=== PATIENT | male | born 1950 | race Caucasian/White ===

== ENCOUNTER 2021-08-01 11:25 | Inpatient (IN) ==
--- NOTE | 2021-08-01 11:46 | Emergency Department Note ---
HPI General Chief complaint: Shortness of Breath/Dyspnea Stated complaint: Short of breath Time Seen by Provider: 08/01/21 11:31 Source: patient Mode of arrival: ambulatory Limitations: no limitations History of Present Illness HPI Narrative: 71-year-old male with past medical history of BPH, GERD, and hyperlipidemia presenting with shortness of breath. Patient reports he has been intermittently short of breath for the last 3 months. He has been working with his primary care physician who has prescribed multiple different inhaled medications which do not seem to help. Last month he had a chest x-ray and CT of the chest which showed no pulmonary embolism but there was noted to be enlargement of the main p ulmonary artery. Patient states he then traveled to [place] and was feeling better. He returned back to [place] and the shortness of breath returned. Dyspnea seems to be worse with exertion. He does have a nonproductive cough. Denies chest pain, leg swelling, vomiting, or fever. Patient had a home COVID test 3 days ago which was negative. He was given referrals to pulmonology but has not seen pulmonology yet. He is a former smoker but has never had a formal diagnosis of COPD. He does not wear oxygen at home. No other complaints at this time Related Data Home Medications Medication Instructions Recorded Confirmed celecoxib 200 mg capsule 200 mg PO QDAY 12/24/20 07/30/21 clobetasol 0.05 % topical cream 1 applic TOPICAL QDAY 12/24/20 07/30/21 balsalazide 750 mg capsule 2,250 mg PO TID 01/28/21 07/30/21 Previous Rx's Medication Instructions Recorded oxybutynin chloride 5 mg 5 mg PO QDAY #90 tab 02/11/21 tablet,extended release 24 hr pravastatin 40 mg tablet 40 mg PO QHS #90 tab 02/18/21 tamsulosin 0.4 mg capsule 0.4 mg PO QDAY #90 cap 05/13/21 ezetimibe 10 mg tablet (Zetia) 10 mg PO QDAY #90 tab 05/14/21 mupirocin 2 % topical ointment 1 applic TOPICAL BID #22 g 05/14/21 omeprazole 20 mg tablet,delayed 40 mg PO QDAY #180 tab 05/30/21 release rizatriptan 5 mg disintegrating See Rx Instructions PO .COMPLEX 06/10/21 tablet #10 tab albuterol sulfate 90 mcg/actuation 2 puff INHALATION Q4-6H PRN #8.5 g 06/13/21 aerosol inhaler fluticasone propionate 230 2 inh INHALATION BID #12 g 06/13/21 mcg-salmeterol 21 mcg/actuation HFA inhaler duloxetine 60 mg capsule,delayed 120 mg PO QDAY #180 cap 06/24/21 release Allergies Allergy/AdvReac Type Severity Reaction Status Date / Time codeine Allergy Unknown Unknown Verified 08/01/21 11:30 ibuprofen Allergy Unknown Unknown Verified 08/01/21 11:30 Penicillins Allergy Unknown Unknown Verified 08/01/21 11:30 Review of Systems ROS ROS Narrative: Narrative: Constitutional: Denies fever or chills Eyes: Denies vision change ENT ED: Denies throat pain Cardiovascular: Denies chest pain or palpitations Respiratory: Reports shortness of breath; Denies cough Gastrointestinal: Denies abdominal pain, nausea, vomiting or diarrhea Genitourinary: Denies dysuria or hematuria Musculoskeletal: Denies back pain or joint swelling Integumentary: Denies rash Neurological: Denies headache or weakness Psychiatric: Denies anxiety Endocrine: Denies fatigue Hematological/Lymphatic: Denies easy bruising PFSH Narrative Patient History Narrative: Narrative: Medical/Surgical/Family History All Active Problems (Updated 08/01/21 @ 15:35 by Олег Mcgregor MD) Bilateral pneumonia (Acute) Hypoxia (Acute) Fatigue (Acute) Shortness of breath (Acute) Migraines (Acute) Nasal folliculitis (Acute) Headache above the eye region (Acute) Sinusitis (Acute) Elevated PSA (Chronic) Sarcoidosis (Chronic) Depressive disorder (Chronic) Aneurysm of thoracic aorta (Chronic) Benign prostatic hyperplasia (Chronic) Osteoarthritis (Chronic) Thoracic lymphadenopathy (Chronic) Solitary lung nodule (Chronic) Asthma (Chronic) Prostatitis (Acute) Ascending aortic aneurysm (Acute) Ulcerative colitis (Acute) Epistaxis (Acute) Wellness examination (Acute) Elevated blood pressure reading (Acute) Urinary urgency (Acute) Medical History (Updated 08/01/21 @ 15:35 by Олег Mcgregor MD) Aneurysm of thoracic aorta Ascending aortic aneurysm Asthma Benign prostatic hyperplasia Depressive disorder Elevated blood pressure reading Elevated PSA Epistaxis Fatigue Migraines Nasal folliculitis Osteoarthritis Sarcoidosis Shortness of breath Solitary lung nodule Thoracic lymphadenopathy Ulcerative colitis Wellness examination Surgical History History of hip surgery Bilateral replacement; 2013 & 2014 History of knee surgery (~2013) partial RT knee History of sinus surgery Family History Sister Arthritis Mother Chronic obstructive lung disease Father Gallstone Migraine Prostate cancer Social History Smoking Status: Former smoker Alcohol Intake Frequency: 0-2 drinks per day Substance Use: does not use Exam Narrative Narrative: Narrative: General Limitations: no limitations General appearance: Present alert and in no apparent distress Head Head: Present atraumatic and normocephalic Eye Eye: Present normal appearance and EOMI; Absent scleral icterus or conjunctival injection ENT ENT: Present mucous membranes moist Neck Neck: Present normal inspection, full ROM and trachea midline Chest Chest: Present symmetric chest wall rise Respiratory Respiratory: Present normal lung sounds bilaterally; Absent respiratory distress, wheezes, stridor, accessory muscle use or prolonged expiratory phase Cardiovascular Cardiovascular: Present regular rate and normal rhythm; Absent systolic murmur or diastolic murmur Adbominal Abdominal: Present soft; Absent distention, tenderness, guarding, rebound, rigidity, organomegaly or mass Extremities Extremities: Present normal inspection; Absent pretibial edema Neurological Neurological: Present alert and oriented X3; Absent motor sensory deficit Psychiatric Psychiatric: Present normal affect and normal mood Skin Skin: Present warm (WNL) and dry Course Consultations Consultation #1: Dr. Qureshi, hospitalist Time: 15:30 Vital Signs Vital signs: Vital Signs Temperature 98.5 F 08/01/21 11:25 Pulse Rate 79 08/01/21 11:25 Respiratory Rate 19 08/01/21 11:25 Blood Pressure 130/84 08/01/21 11:25 Pulse Oximetry (%) 91 08/01/21 11:25 Temperature 98.5 F 08/01/21 11:25 Pulse Rate 79 08/01/21 15:17 Respiratory Rate 19 08/01/21 11:25 Blood Pressure 121/78 08/01/21 13:56 Pulse Oximetry (%) 92 08/01/21 15:17 [facility] MDM Narrative Medical decision making narrative: 71-year-old male presenting with dyspnea with exertion. He was noted to be satting 86% at rest while on room air. He did not have any wheezing on pulmonary examination. He was placed on 3 L nasal cannula with improvement in his saturations. Rapid COVID and influenza tests are negative. Chest x-ray shows no large focal infiltrates. He was given p.o. prednisone 60 mg. Given his unexplained hypoxia, D-dimer was ordered and found to be elevated at 4.46. CTA chest obtained which shows no pulmonary embolism but there are moderate patchy groundglass infiltrates in both upper lobes and in the periphery of both posterior lower lobes. These are new compared to his prior chest CT. This is presumably atypical pneumonia, doses of IV Rocephin and azithromycin ordered. DuoNeb was also ordered. Will admit for pneumonia and hypoxia, patient endorsed to Dr. Qureshi who will accept. Lab Data Lab results reviewed: Yes I reviewed the patient's lab results. Result diagrams: 08/01/21 12:16 08/01/21 12:16 Labs: Lab Results 08/01/21 08/01/21 08/01/21 Range/Units 12:16 12:16 12:16 WBC 7.7 (4.5-11.0) K/mcL RBC 4.20 L (4.63-6.08) M/mcL Hgb 12.3 L (13.7-17.5) g/dL Hct 37.1 L (40.1-51.0) % MCV 88.3 (80.0-100.0) fL MCH 29.3 (26.0-34.0) pg MCHC 33.2 (31.0-36.0) g/dL RDW 12.9 (11.5-14.5) % Plt Count 251 (140-440) K/mcL MPV 9.6 (7.4-10.4) fL Neut % (Auto) 69.5 (38.0-78.0) % Lymph % (Auto) 16.7 (15.5-49.0) % [place] % (Auto) 6.1 (1.0-12.0) % Eos % (Auto) 6.9 (0.0-7.0) % Baso % (Auto) 0.8 (0.0-2.0) % Lymph # (Auto) 1.29 L (1.50-4.80) K/mcL [place] # (Auto) 0.47 (0.10-0.90) K/mcL Eos # (Auto) 0.53 (0.00-0.70) K/mcL Baso # (Auto) 0.06 (0.00-0.30) K/mcL Absolute Neutrophils 5.37 (1.80-8.00) K/mcL D-Dimer 4.46 H (0.27-0.50) ug/mL Sodium 133 (133-145) mmol/L Potassium 4.3 (3.3-5.1) mmol/L Chloride 100 (96-108) mmol/L Carbon Dioxide 26 (22-30) mmol/L Anion Gap 7.0 L (8.0-16.0) BUN 16 (8-23) mg/dL Creatinine 1.0 (0.7-1.2) mg/dL GFR Calculation 74 Glucose 109 H (70-105) mg/dL Calcium 9.1 (8.6-10.4) mg/dL Total Bilirubin 0.3 (0.1-1.0) mg/dL AST 16 (<40) U/L ALT 11 (<40) U/L Alkaline Phosphatase 53 (39-117) U/L NT-Pro-B Natriuret Pep 100.7 (<125.0) pg/mL Total Protein 7.6 (5.9-8.4) gm/dL Albumin 3.2 (3.2-5.2) gm/dL Globulin 4.4 H (2.2-3.7) gm/dL Albumin/Globulin Ratio 0.7 L (1.0-2.3) POC Troponin I (0.02-0.08) 08/01/ Range/Units 12:22 WBC (4.5-11.0) K/mcL RBC (4.63-6.08) M/mcL Hgb (13.7-17.5) g/dL Hct (40.1-51.0) % MCV (80.0-100.0) fL MCH (26.0-34.0) pg MCHC (31.0-36.0) g/dL RDW (11.5-14.5) % Plt Count (140-440) K/mcL MPV (7.4-10.4) fL Neut % (Auto) (38.0-78.0) % Lymph % (Auto) (15.5-49.0) % [place] % (Auto) (1.0-12.0) % Eos % (Auto) (0.0-7.0) % Baso % (Auto) (0.0-2.0) % Lymph # (Auto) (1.50-4.80) K/mcL [place] # (Auto) (0.10-0.90) K/mcL Eos # (Auto) (0.00-0.70) K/mcL Baso # (Auto) (0.00-0.30) K/mcL Absolute Neutrophils (1.80-8.00) K/mcL D-Dimer (0.27-0.50) ug/mL Sodium (133-145) mmol/L Potassium (3.3-5.1) mmol/L Chloride (96-108) mmol/L Carbon Dioxide (22-30) mmol/L Anion Gap (8.0-16.0) BUN (8-23) mg/dL Creatinine (0.7-1.2) mg/dL GFR Calculation Glucose (70-105) mg/dL Calcium (8.6-10.4) mg/dL Total Bilirubin (0.1-1.0) mg/dL AST (<40) U/L ALT (<40) U/L Alkaline Phosphatase (39-117) U/L NT-Pro-B Natriuret Pep (<125.0) pg/mL Total Protein (5.9-8.4) gm/dL Albumin (3.2-5.2) gm/dL Globulin (2.2-3.7) gm/dL Albumin/Globulin Ratio (1.0-2.3) POC Troponin I 0 L (0.02-0.08) ED POC Tests ED POC Tests: [facility] - Influenza A Negative [facility] - Influenza B Negative [facility] - SARS Antigen Negative Radiology Data Radiology results reviewed: Yes I reviewed the patient's radiology results. Radiology results narrative: Ordering Physician:Олег Mcgregor M.D. Date of Service:08/01/21 Procedure(s):XR chest 2V CLINICAL INFORMATION: Dyspnea COMPARISON: 06/13/2021 TECHNIQUE: PA and Lateral views FINDINGS: The heart size, mediastinum and pulmonary vessels are unremarkable. The lungs are clear. There are no effusions. The bones and soft tissues are within normal limits. IMPRESSION: Normal chest. Interpreted and Authenticated by: Darryn Serra 08/01/21 Ordering Physician:Олег Mcgregor M.D. Date of Service:08/01/21 Procedure(s):CT angio chest CLINICAL INFORMATION: Dyspnea, hypoxia and elevated d-dimer COMPARISON: CT pulmonary exam 06/19/2021 TECHNIQUE: APml of Isovue-370 were injected intravenously. Using SmartPrep to maximize pulmonary artery opacification, .625mm helical slices were obtained from the lung apices through the lung bases. Following reconstruction, 2.5 mm sagittal, coronal, and axial reformations were processed. The exam was reviewed at mediastinal, lung, and bone windows. The exam was performed using radiation dose optimization techniques including, but not limited to, automated exposure control, adjustment of the mA and/or kV according to patient size and use of iterative reconstruction technique. FINDINGS: Pulmonary parenchymal windows show moderate patchy groundglass infiltrates in both upper lobes and superior segment left lower lobe. Mild patchy infiltrate seen in the right middle lobe and in the periphery of both posterior lower lobes. All infiltrates are new from the CT six weeks ago. Pleural spaces are unremarkable-no effusions. Mediastinal windows show the heart is grossly normal in size and configuration. The central pulmonary arteries are moderately: The main pulmonary diameter of 4.5 cm. Findings compatible with pulmonary hypertension. This is unchanged. The thoracic aorta is normal in diameter. Heart is normal in size with very heavy fibrofatty calcific plaque in the LAD coronary artery. Scattered plaque present in the right coronary artery and the circumflex. There is no adenopathy in the mediastinal, hilar or axillary regions. The esophagus is grossly normal. Thyroid is unremarkable. Bone windows show moderate degenerative disc disease in mid thoracic spine with chronic wedging and endplate irregularity compatible associated chronic Scheuermann's disease. Soft tissues are normal. Images through the superior abdomen a few stable hepatic cysts. IMPRESSION: 1. No evidence of pulmonary embolus. 2. Moderate patchy groundglass infiltrates in both upper lobes and superior segment left lower lobe with smaller groundglass infiltrates in the periphery of both posterior lower lobes. The infiltrates are new from the exam does six weeks prior. Diagnostic considerations include atypical pneumonia including covid mycoplasma or PCP. ARDS acute eosinophilic pneumonia and acute hypersensitivity pneumonia are all uncommon causes. 3. Moderate enlargement of the central pulmonary arteries compatible with pulmonary hypertension stable. Etiology for this is unknown. 4. Stable hepatic cysts Interpreted and Authenticated by: Darryn Serra 08/01/21 EKG Data EKG #1: EKG attestation: Yes I reviewed and interpreted this EKG. and Yes There are no EKG findings of acute coronary syndrome EKG results narrative: Normal sinus rhythm at [address] elevation or depression. Interpretation: no acute changes Discharge Plan Patient/Caregiver Discharge Instructions Pt seen by [facility] [employer]/PA only: No Clinical Impression: Bilateral pneumonia, Hypoxia Patient Disposition: Xfer As Inpt ([facility]) Condition: Fair Follow up with: Satinder Nam MD [Primary Care Provider] - Prescriptions: No Action oxybutynin chloride 5 mg tablet extended release 24hr 5 mg PO QDAY Qty: 90 0RF pravastatin 40 mg tablet 40 mg PO QHS Qty: 90 0RF tamsulosin 0.4 mg capsule 0.4 mg PO QDAY Qty: 90 0RF omeprazole 20 mg tablet,delayed release (DR/EC) 40 mg PO QDAY Qty: 180 0RF rizatriptan 5 mg tablet,disintegrating See Rx Instructions PO .COMPLEX Qty: 10 0RF Rx Instructions: take 1 tablet at onset of headache; if no relief, may repeat 1 tablet after at least 2 hrs PO fluticasone propion-salmeterol 230-21 mcg/actuation HFA aerosol inhaler 2 inh inhalation BID Qty: 12 2RF Hold Instructions: Doctor's Order duloxetine 60 mg capsule,delayed release(DR/EC) 120 mg PO QDAY Qty: 180 0RF celecoxib 200 mg capsule 200 mg PO QDAY 0RF clobetasol 0.05 % cream 1 applic topical QDAY 0RF balsalazide 750 mg capsule 2,250 mg PO TID 0RF ezetimibe [Zetia] 10 mg tablet 10 mg PO QDAY Qty: 90 2RF mupirocin 2 % ointment 1 applic topical BID Qty: 22 2RF albuterol sulfate 90 mcg/actuation HFA aerosol inhaler 2 puff inhalation Q4-6H PRN (Reason: shortness of breath or wheezing) Qty: 8.5 3RF Breztri Aerosphere 160-9-4.8 mcg/actuation HFA aerosol inhaler 0RF Hold Instructions: Doctor's Order Myrbetriq 50 mg tablet extended release 24 hr 0RF
[2021-08-01] MEDS ORDERED: predniSONE 20 MG TABLET PO ONE (12:08)
[2021-08-01 13:03] LABS: Basophils # (Auto) 0.06 K/mcL (0.00-0.30); Basophils % (Auto) 0.8 % (0.0-2.0); Eosinophils # (Auto) 0.53 K/mcL (0.00-0.70); Eosinophils % (Auto) 6.9 % (0.0-7.0); Hematocrit 37.1 % (40.1-51.0); Hemoglobin 12.3 g/dL (13.7-17.5); Lymphocytes # (Auto) 1.29 K/mcL (1.50-4.80); Lymphocytes % (Auto) 16.7 % (15.5-49.0); Mean Cell Volume 88.3 fL (80.0-100.0); Mean Corpuscular HGB Conc 33.2 g/dL (31.0-36.0); Mean Platelet Volume 9.6 fL (7.4-10.4); Monocytes # (Auto) 0.47 K/mcL (0.10-0.90); Monocytes % (Auto) 6.1 % (1.0-12.0); Neutrophils % (Auto) 69.5 % (38.0-78.0); Platelet Count 251 K/mcL (140-440); Red Cell Distribution Width 12.9 % (11.5-14.5); WBC 7.7 K/mcL (4.5-11.0)
[2021-08-01 13:22] LABS: proBNP 100.7 pg/mL (<125.0)
--- NOTE | 2021-08-01 13:24 | XRay Report ---
CLINICAL INFORMATION: Dyspnea COMPARISON: 06/13/2021 TECHNIQUE: PA and Lateral views FINDINGS: The heart size, mediastinum and pulmonary vessels are unremarkable. The lungs are clear. There are no effusions. The bones and soft tissues are within normal limits. IMPRESSION: Normal chest. Interpreted and Authenticated by: Darryn Serra 08/01/21
[2021-08-01 13:27] LABS: ALT/SGPT 11 U/L (<40); AST/SGOT 16 U/L (<40); Albumin 3.2 gm/dL (3.2-5.2); Albumin/Globulin Ratio 0.7 (1.0-2.3); Alkaline Phosphatase 53 U/L (39-117); Bilirubin,Total 0.3 mg/dL (0.1-1.0); Blood Urea Nitrogen 16 mg/dL (8-23); Calcium 9.1 mg/dL (8.6-10.4); Carbon Dioxide 26 mmol/L (22-30); Chloride 100 mmol/L (96-108); Globulin 4.4 gm/dL (2.2-3.7); Glomerular Filtration Rate 74; Glucose 109 mg/dL (70-105)
--- NOTE | 2021-08-01 14:47 | Cat Scan Report ---
CLINICAL INFORMATION: Dyspnea, hypoxia and elevated d-dimer COMPARISON: CT pulmonary exam 06/19/2021 TECHNIQUE: APml of Isovue-370 were injected intravenously. Using SmartPrep to maximize pulmonary artery opacification, .625mm helical slices were obtained from the lung apices through the lung bases. Following reconstruction, 2.5 mm sagittal, coronal, and axial reformations were processed. The exam was reviewed at mediastinal, lung, and bone windows. The exam was performed using radiation dose optimization techniques including, but not limited to, automated exposure control, adjustment of the mA and/or kV according to patient size and use of iterative reconstruction technique. FINDINGS: Pulmonary parenchymal windows show moderate patchy groundglass infiltrates in both upper lobes and superior segment left lower lobe. Mild patchy infiltrate seen in the right middle lobe and in the periphery of both posterior lower lobes. All infiltrates are new from the CT six weeks ago. Pleural spaces are unremarkable-no effusions. Mediastinal windows show the heart is grossly normal in size and configuration. The central pulmonary arteries are moderately: The main pulmonary diameter of 4.5 cm. Findings compatible with pulmonary hypertension. This is unchanged. The thoracic aorta is normal in diameter. Heart is normal in size with very heavy fibrofatty calcific plaque in the LAD coronary artery. Scattered plaque present in the right coronary artery and the circumflex. There is no adenopathy in the mediastinal, hilar or axillary regions. The esophagus is grossly normal. Thyroid is unremarkable. Bone windows show moderate degenerative disc disease in mid thoracic spine with chronic wedging and endplate irregularity compatible associated chronic Scheuermann's disease. Soft tissues are normal. Images through the superior abdomen a few stable hepatic cysts. IMPRESSION: 1. No evidence of pulmonary embolus. 2. Moderate patchy groundglass infiltrates in both upper lobes and superior segment left lower lobe with smaller groundglass infiltrates in the periphery of both posterior lower lobes. The infiltrates are new from the exam does six weeks prior. Diagnostic considerations include atypical pneumonia including covid mycoplasma or PCP. ARDS acute eosinophilic pneumonia and acute hypersensitivity pneumonia are all uncommon causes. 3. Moderate enlargement of the central pulmonary arteries compatible with pulmonary hypertension stable. Etiology for this is unknown. 4. Stable hepatic cysts Interpreted and Authenticated by: Darryn Serra 08/01/21
[2021-08-01] MEDS ORDERED: IPRATROPIUM/ALBUTEROL 3 ML AMPUL.NEB NEB ONE (15:06)
[2021-08-01] MEDS ORDERED: cefTRIAXone 1 GM VIAL IV ONE ×2 (15:18→16:30)
[2021-08-01] MEDS ORDERED: AZITHROMYCIN 500 MG in DEXTROSE 5% IN WATER 250 ML IV ONE (15:18)
--- NOTE | 2021-08-01 15:19 | Internal Med History&Physical ---
HPI History of Present Illness Patient information: Note initiated : 08/01/21 at 3:19 pm Service Date, if different from initiated Date: [] Patient: Norman Lofton a 71 y/o M admitted on for Short of breath. Chief Complaint: [] History of present illness: Mr. Lofton is a 71 year old M Presents to the ED with shortness of breath and dry cough. He says he came in today finally because his said last night he was breathing really shallow and she did not like the way he was breathing. Patient states in April started having shortness of breath and coughing issues. He was also having a lot of nasal congestion and drainage and attribut ed it to allergies. But because of shortness of breath he went and saw his primary care Dr. Nam. Is placed on a course of antibiotics and also trialed on several different inhalers. Echocardiogram was done as well which was unremarkable. He eventually started improving and was recently in [place] visiting his in- laws and he felt better in [place], but while there his father did have a respiratory illness with a fever. When he got back from [place] he did develop the fever for day and then started developing worsening of his symptoms again, cough and shortness of breath. Patient denies a COVID or COVID exposure. He has had the COVID-vaccine and the booster. Denies pyrosis or other acid reflux symptoms. No exposure to farm/farm animals. In the ED he was evaluated found to be 86% on room air. Rapid flu and COVID test are negative, anther COVID test pending. She denies chest pain. But had the fevers for the 1 day and has some occasional chills. Recommend ED review he will the elevated dimer and thus a CT a of the chest was done. It was negative for PE but showed moderate patchy groundglass infiltrates bilateral upper lobes and left lower lobes and some small in the periphery of the posterior bilateral lobes. Review of Systems: Pertinent positives as above. Denies headache/nausea/vomiting/chest or abdominal pain/diarrhea. Remaining 10 point review of system reviewed negative PFSH PFSH All Active Problems (Updated 08/01/21 @ 15:35 by Олег Mcgregor MD) Bilateral pneumonia (Acute) Hypoxia (Acute) Fatigue (Acute) Shortness of breath (Acute) Migraines (Acute) Nasal folliculitis (Acute) Headache above the eye region (Acute) Sinusitis (Acute) Elevated PSA (Chronic) Sarcoidosis (Chronic) Depressive disorder (Chronic) Aneurysm of thoracic aorta (Chronic) Benign prostatic hyperplasia (Chronic) Osteoarthritis (Chronic) Thoracic lymphadenopathy (Chronic) Solitary lung nodule (Chronic) Asthma (Chronic) Prostatitis (Acute) Ascending aortic aneurysm (Acute) Ulcerative colitis (Acute) Epistaxis (Acute) Wellness examination (Acute) Elevated blood pressure reading (Acute) Urinary urgency (Acute) Medical History (Updated 08/01/21 @ 15:35 by Олег Mcgregor MD) Aneurysm of thoracic aorta Ascending aortic aneurysm Asthma Benign prostatic hyperplasia Depressive disorder Elevated blood pressure reading Elevated PSA Epistaxis Fatigue Migraines Nasal folliculitis Osteoarthritis Sarcoidosis Shortness of breath Solitary lung nodule Thoracic lymphadenopathy Ulcerative colitis Wellness examination Surgical History History of hip surgery Bilateral replacement; 2013 & 2014 History of knee surgery (~2013) partial RT knee History of sinus surgery Family History Sister Arthritis Mother Chronic obstructive lung disease Father Gallstone Migraine Prostate cancer Social History marital status: occupational status: retired smoking status: Former smoker alcohol intake frequency: 0-2 drinks per day substance use type: does not use MEDS/ALLERGIES Home Medications and Allergies Home Medications Medication Instructions Recorded Confirmed Type celecoxib 200 mg capsule 200 mg PO QDAY 12/24/20 07/30/21 History clobetasol 0.05 % topical cream 1 applic TOPICAL QDAY 12/24/20 07/30/21 History balsalazide 750 mg capsule 2,250 mg PO TID 01/28/21 07/30/21 History oxybutynin chloride 5 mg 5 mg PO QDAY #90 tab 02/11/21 07/30/21 Rx tablet,extended release 24 hr pravastatin 40 mg tablet 40 mg PO QHS #90 tab 02/18/21 07/30/21 Rx tamsulosin 0.4 mg capsule 0.4 mg PO QDAY #90 cap 05/13/21 07/30/21 Rx ezetimibe 10 mg tablet (Zetia) 10 mg PO QDAY #90 tab 05/14/21 07/30/21 Rx mupirocin 2 % topical ointment 1 applic TOPICAL BID #22 g 05/14/21 07/30/21 Rx omeprazole 20 mg tablet,delayed 40 mg PO QDAY #180 tab 05/30/21 07/30/21 Rx release rizatriptan 5 mg disintegrating See Rx Instructions PO .COMPLEX 06/10/21 07/30/21 Rx tablet #10 tab albuterol sulfate 90 mcg/actuation 2 puff INHALATION Q4-6H PRN #8.5 g 06/13/21 07/30/21 Rx aerosol inhaler fluticasone propionate 230 2 inh INHALATION BID #12 g 06/13/21 07/30/21 Rx mcg-salmeterol 21 mcg/actuation HFA inhaler duloxetine 60 mg capsule,delayed 120 mg PO QDAY #180 cap 06/24/21 07/30/21 Rx release Allergies Allergy/AdvReac Type Severity Reaction Status Date / Time codeine Allergy Unknown Unknown Verified 08/01/21 11:30 ibuprofen Allergy Unknown Unknown Verified 08/01/21 11:30 Penicillins Allergy Unknown Unknown Verified 08/01/21 11:30 EXAM Constitutional Vitals: Temp Pulse Resp BP Pulse Ox 98.5 F 79 19 121/78 92 08/01/21 11:25 08/01/21 15:17 08/01/21 11:25 08/01/21 13:56 08/01/21 15:17 Exam: General: Alert, Awake, No acute Distress Eyes/N/T: EOMI, PERRL, MM Head/Neck: neck supple, normocephalic atraumatic CV: RRR, No murmurs, normal s1/s2 Pulm: Clear b/l, no wheezing/rhonchi/rales Abd: soft, nontender, +BS x4 Ext: no clubbing/cyanosis/edema Neuro: Alert, no focal deficits, moves all extremities, CN 2-12 grossly intact, symmetrical strength b/l upper/lower, sensations intact b/l upper/lower Skin: warm/dry DATA Data Completed and Pending Labs: Labs from last 24 hours 08/01/21 08/01/21 08/01/21 12:22 12:16 12:16 WBC 7.7 RBC 4.20 L Hgb 12.3 L Hct 37.1 L MCV 88.3 MCH 29.3 MCHC 33.2 RDW 12.9 Plt Count 251 MPV 9.6 Neut % (Auto) 69.5 Lymph % (Auto) 16.7 [place] % (Auto) 6.1 Eos % (Auto) 6.9 Baso % (Auto) 0.8 Lymph # (Auto) 1.29 L [place] # (Auto) 0.47 Eos # (Auto) 0.53 Baso # (Auto) 0.06 Absolute Neutrophils 5.37 D-Dimer 4.46 H Sodium Potassium Chloride Carbon Dioxide Anion Gap BUN Creatinine GFR Calculation Glucose Calcium Total Bilirubin AST ALT Alkaline Phosphatase NT-Pro-B Natriuret Pep Total Protein Albumin Globulin Albumin/Globulin Ratio POC Troponin I 0 L 08/01/21 12:16 WBC RBC Hgb Hct MCV MCH MCHC RDW Plt Count MPV Neut % (Auto) Lymph % (Auto) [place] % (Auto) Eos % (Auto) Baso % (Auto) Lymph # (Auto) [place] # (Auto) Eos # (Auto) Baso # (Auto) Absolute Neutrophils D-Dimer Sodium 133 Potassium 4.3 Chloride 100 Carbon Dioxide 26 Anion Gap 7.0 L BUN 16 Creatinine 1.0 GFR Calculation 74 Glucose 109 H Calcium 9.1 Total Bilirubin 0.3 AST 16 ALT 11 Alkaline Phosphatase 53 NT-Pro-B Natriuret Pep 100.7 Total Protein 7.6 Albumin 3.2 Globulin 4.4 H Albumin/Globulin Ratio 0.7 L POC Troponin I A/P Narrative A/P Narrative: A: *PNA b/l groundglass, Atypical Bacterial vs Viral: -flu neg *Acute hypoxic respiratory failure: -on 2L NC *Hyperlipidemia: *GERD: *Ulcerative colitis: * P: -Rocephin/azithromycin -pending myco/RVP/Covid -pending esr/crp/pct -O2 supp, wean as able -Home medication reconciliation -cont home ppi -ppx: lovenox Time Spent With Patient Time: Total time spent is greater than 50% in coordination of care (as documented) at patient's floor/unit and/or counseling patient: Total time spent with greater than 50% in coordination of care (as documented) at patient's floor/unit and/or counseling patient:: 50 - 70 minutes
[2021-08-01] MEDS ORDERED: IPRATROPIUM/ALBUTEROL 3 ML AMPUL.NEB NEB PRN (16:18)
[2021-08-01] MEDS ORDERED: ONDANSETRON 4 MG/2 ML VIAL IV PRN (16:18)
[2021-08-01] MEDS ORDERED: POTASSIUM CHLORIDE 40 MEQ in DEXTROSE 5% IN WATER 500 ML IV PRN (16:18)
[2021-08-01] MEDS ORDERED: MAGNESIUM SULFATE 2 GM/50 ML BAG IV PRN (16:18)
[2021-08-01] MEDS ORDERED: POLYETHYLENE GLYCOL 3350 17 GM PACKET PO PRN (16:18)
[2021-08-01] MEDS ORDERED: ACETAMINOPHEN 325 MG TABLET PO PRN (16:18)
[2021-08-01] MEDS ORDERED: SENNOSIDES 1 TABLET PO PRN (16:18)
[2021-08-01] MEDS ORDERED: POTASSIUM CHLORIDE 20 MEQ TABLET PO PRN ×2 (16:18)
[2021-08-01] MEDS ORDERED: IOPAMIDOL 100 ML BOTTLE IV ONE (17:39)
[2021-08-01 18:18] LABS: Band Neutrophils % 4 % (0-10); Basophils % (Manual) 2 % (0-2); Eosinophils % (Manual) 4 % (0-7); Lymphocytes % 14 % (15-49); Monocytes % (Manual) 4 % (1-12); Platelet Estimate NORMAL (Normal); RBC Morphology NORMAL (Normal); Segmented Neutrophils % 72 % (38-78)
[2021-08-01] MEDS: IPRATROPIUM/ALBUTEROL 3 ML AMPUL.NEB NEB SCH (20:09)
[2021-08-01] MEDS: FAMOTIDINE 20 MG TABLET PO SCH (20:30)
[2021-08-01] MEDS: 0.9 % SODIUM CHLORIDE 10 ML SYRINGE IV SCH (20:30)
[2021-08-01] MEDS ORDERED: CLOBETASOL PROPIONATE 1 DOSE TUBE TOPICAL PRN (20:31)
[2021-08-01] MEDS: DOCUSATE SODIUM 100 MG CAPSULE PO SCH (20:31)
[2021-08-01] MEDS ORDERED: CELECOXIB 200 MG CAPSULE PO PRN (20:31)
[2021-08-01] MEDS ORDERED: MUPIROCIN OINT 2% 22GM TOPICAL PRN (20:31)
[2021-08-01] MEDS ORDERED: BALSALAZIDE 750 MG PO SCH (21:00)
[2021-08-01] MEDS ORDERED: NON FORMULARY MEDICATION 1 DOSE MISCELL (Budesonide-Glycopyr-Formoterol [Breztri Aerospher inhalation SCH (21:00)
[2021-08-01] MEDS ORDERED: RIZATRIPTAN 5 MG PO PRN (22:18)
[2021-08-02] MEDS: 0.9 % SODIUM CHLORIDE 10 ML SYRINGE IV SCH ×3 (04:02→21:08)
[2021-08-02 06:00] LABS: Basophils # (Auto) 0.04 K/mcL (0.00-0.30); Basophils % (Auto) 0.5 % (0.0-2.0); Eosinophils # (Auto) 0.08 K/mcL (0.00-0.70); Hematocrit 38.4 % (40.1-51.0); Hemoglobin 12.4 g/dL (13.7-17.5); Lymphocytes # (Auto) 1.39 K/mcL (1.50-4.80); Lymphocytes % (Auto) 16.5 % (15.5-49.0); Mean Cell Volume 89.5 fL (80.0-100.0); Mean Corpuscular HGB Conc 32.3 g/dL (31.0-36.0); Mean Platelet Volume 9.3 fL (7.4-10.4); Monocytes # (Auto) 0.54 K/mcL (0.10-0.90); Monocytes % (Auto) 6.4 % (1.0-12.0); Neutrophils % (Auto) 75.6 % (38.0-78.0); Platelet Count 260 K/mcL (140-440); RBC 4.29 M/mcL (4.63-6.08); WBC 8.4 K/mcL (4.5-11.0)
[2021-08-02 06:24] LABS: ALT/SGPT 11 U/L (<40); AST/SGOT 13 U/L (<40); Albumin 3.3 gm/dL (3.2-5.2); Albumin/Globulin Ratio 0.7 (1.0-2.3); Alkaline Phosphatase 47 U/L (39-117); Bilirubin,Direct < 0.2 mg/dL (0-0.3); Bilirubin,Total 0.3 mg/dL (0.1-1.0); Blood Urea Nitrogen 16 mg/dL (8-23); Calcium 9.5 mg/dL (8.6-10.4); Carbon Dioxide 27 mmol/L (22-30); Chloride 101 mmol/L (96-108); Globulin 4.5 gm/dL (2.2-3.7); Glomerular Filtration Rate 74; Glucose 114 mg/dL (70-105); Lactate Dehydrogenase 134 U/L (135-225); Phosphorous 4.3 mg/dL (2.5-4.5); Triglycerides 54 mg/dL (<150); Uric Acid 6.1 mg/dL (2.5-8.0)
--- NOTE | 2021-08-02 07:44 | Internal Med Progress Note ---
SUBJECTIVE Subjective Patient information: Note initiated : 08/02/21 at 7:39 am Service Date, if different from initiated Date: [] Patient: Norman Lofton a 71 y/o M admitted on 08/01/21 for Short of breath. Chief Complaint: [] Interval history: History of present illness: Mr. Lofton is a 71 year old M Presents to the ED with shortness of breath and dry cough. He says he came in today finally because his said last night he was breathing really shallow and she did not like the way he was breathing. Patient states in April started having shortness of breath and coughing issues. He was also having a lot of nasal congestion and drainage and attributed it to allergies. But because of shortness of breath he went and saw his primary care Dr. Nam. Is placed on a course of antibiotics and also trialed on several different inhalers. Echocardiogram was done as well which was unremarkable. He eventually started improving and was recently in [place] visiting his in- laws and he felt better in [place], but while there his father did have a respiratory illness with a fever. When he got back from [place] he did develop the fever for day and then started developing worsening of his symptoms again, cough and shortness of breath. Patient denies a COVID or COVID exposure. He has had the COVID-vaccine and the booster. Denies pyrosis or other acid reflux symptoms. No exposure to farm/farm animals. In the ED he was evaluated found to be 86% on room air. Rapid flu and COVID test are negative, anther COVID test pending. She denies chest pain. But had the fevers for the 1 day and has some occasional chills. Recommend ED review he will the elevated dimer and thus a CT a of the chest was done. It was negative for PE but showed moderate patchy groundglass infiltrates bilateral upper lobes and left lower lobes and some small in the periphery of the posterior bilateral lobes. 08/02 Patient has dry cough. Shortness of breath present and not much better than yesterday. Viral work-up negative thus far. Mycoplasma pending. Vasculitis work-up pending. Monitoring inflammatory markers. Review of Systems: denies headache/fever/chills/nausea/vomiting/chest or abdominal pain/diarrhea. Otherwise see above. Constitutional Vitals: Vital Signs Temp Pulse Resp BP Pulse Ox 98.7 F 80 18 124/78 94 08/02/21 04:00 08/02/21 04:00 08/02/21 04:00 08/02/21 04:00 08/02/21 04:03 Period Temp Pulse Resp BP Sys/Yoon Pulse Ox Last 24 Hr 98.0 F-98.7 F 72-100 16-20 114-130/72-84 86-97 Intake and Output 08/01/21 08/02/21 08/02/21 21:59 05:59 13:59 Intake Total 750 500 Output Total 1125 1450 Balance -375 -950 Weight 85.91 kg Intake & Output: Intake & Output 08/01/21 08/02/21 08/02/21 21:59 05:59 13:59 Intake Total 750 500 Output Total 1125 1450 Balance -375 -950 Weight 85.91 kg Intake: IV 250 Zithromax 500 mg In Dextrose 5% 250 in Water 250 ml @ 250 mls/hr IV ONCE ONE Rx#:[id number] Oral 500 500 Output: Void Amount 1125 1450 # of times incontinent of urine 0 Other: Meal Dinner Percent of Meal Consumed 100% Feeding Ability Independent Urine Appearance Clear Clear Urine Color Pale Straw Urine Odor Normal # Voids 0 # Bowel Movements 0 # of times incontinent of 0 Bowels Exam: General: Alert, Awake, No acute Distress Eyes/N/T: EOMI, Head/Neck: neck supple, CV: RRR, No murmurs, Pulm: minimal bibasilar rhonchi, no wheezing Abd: soft, nontender, +BS x4 Ext: no clubbing/cyanosis/edema Neuro: Alert, no focal deficits, moves all extremities, Skin: warm/dry OBJ DATA Labs CBC & Chem 7: 08/02/21 05:16 08/02/21 05:16 Labs: Abnormal Lab Results 08/02/21 08/02/21 08/02/21 05:16 05:16 05:16 RBC Hgb Hct Lymph # (Auto) Lymphocytes % ESR D-Dimer Anion Gap Glucose 114 H Lactate Dehydrogenase 134 L C-Reactive Protein 3.80 H Globulin 4.5 H Albumin/Globulin Ratio 0.7 L Procalcitonin 0.26 H POC Troponin I 08/02/21 08/01/21 08/01/21 05:16 12:22 12:16 RBC 4.29 L Hgb 12.4 L Hct 38.4 L Lymph # (Auto) 1.39 L Lymphocytes % 14 L ESR D-Dimer Anion Gap Glucose Lactate Dehydrogenase C-Reactive Protein Globulin Albumin/Globulin Ratio Procalcitonin POC Troponin I 0 L 08/01/21 08/01/21 08/01/21 12:16 12:16 12:16 RBC Hgb Hct Lymph # (Auto) Lymphocytes % ESR 110 H D-Dimer Anion Gap Glucose Lactate Dehydrogenase C-Reactive Protein 5.60 H Globulin Albumin/Globulin Ratio Procalcitonin 0.39 H POC Troponin I 08/01/21 08/01/21 08/01/21 12:16 12:16 12:16 RBC 4.20 L Hgb 12.3 L Hct 37.1 L Lymph # (Auto) 1.29 L Lymphocytes % ESR D-Dimer 4.46 H Anion Gap 7.0 L Glucose 109 H Lactate Dehydrogenase C-Reactive Protein Globulin 4.4 H Albumin/Globulin Ratio 0.7 L Procalcitonin POC Troponin I Meds: Medications Acetaminophen (Acetaminophen 325 Mg Tablet) 650 mg PO Q6HP PRN; Protocol PRN Reason: Per Pain Protocol/Fever > 101 Last Admin: 08/02/21 04:00 Dose: 650 mg Documented by: Albuterol/Ipratropium (Ipratropium/Albuterol 3 Ml Ampul.Neb) 3 ml NEB Q4HP PRN PRN Reason: Shortness Of Breath Albuterol/Ipratropium (Ipratropium/Albuterol 3 Ml Ampul.Neb) 3 ml NEB BID [facility] Last Admin: 08/01/21 20:09 Dose: 3 ml Documented by: Celecoxib (Celecoxib 200 Mg Capsule) 200 mg PO QDAY PRN PRN Reason: pain Clobetasol Propionate (Clobetasol Propionate 1 Dose Tube) 1 dose TOPICAL BIDP PRN PRN Reason: Skin Irritation Docusate Sodium (Docusate Sodium 100 Mg Capsule) 100 mg PO BID [facility] Last Admin: 08/01/21 20:31 Dose: Not Given Documented by: Duloxetine HCl (Duloxetine 30 Mg Capsule) 120 mg PO DAILY [facility] Ezetimibe (Ezetimibe 10 Mg Tablet) 10 mg PO QDAY [facility] Enoxaparin Sodium (Enoxaparin 40 Mg/0.4 Ml Syringe) 40 mg SQ DAILY [facility] Famotidine (Famotidine 20 Mg Tablet) 20 mg PO BID [facility] Last Admin: 08/01/21 20:30 Dose: 20 mg Documented by: Potassium Chloride 40 meq/ (Dextrose) 520 mls @ 130 mls/hr IV UD PRN PRN Reason: Potassium < 3 Magnesium Sulfate (Magnesium Sulfate) 2 gm in 50 mls @ 50 mls/hr IV UD PRN PRN Reason: Magnesium </= 1.6 Ceftriaxone Sodium 2 gm/ (Dextrose) 50 mls @ 100 mls/hr IV DAILY [facility]; Protocol Azithromycin 500 mg/ Dextrose 250 mls @ 250 mls/hr IV DAILY@1100 [facility]; Protocol Stop: 08/03/21 11:59 Mupirocin (Mupirocin Oint 2% 22gm) 1 dose TOPICAL BIDP PRN PRN Reason: Skin Irritation Ondansetron HCl (Ondansetron 4 Mg/2 Ml Vial) 4 mg IV Q4HP PRN PRN Reason: Nausea And Vomiting Rizatriptan 5 Mg Tablet, Disintegrating 1 dose PO DAILYP PRN PRN Reason: Migraine Headache Balsalazide 750 Mg (Capsule) 3 dose PO TID [facility] Budesonide-Glycopyr- Formoterol [Breztri] Inhaler 1 dose INH BID [facility] Polyethylene Glycol (Polyethylene Glycol 3350 17 Gm Packet) 17 gm PO DAILYP PRN PRN Reason: Constipation Potassium Chloride (Potassium Chloride 20 Meq Tablet) 40 meq PO UD PRN PRN Reason: Potssium is 3-3.5 Potassium Chloride (Potassium Chloride 20 Meq Tablet) 40 meq PO UD PRN PRN Reason: Potassium < 3 Prednisone (Prednisone 20 Mg Tablet) 40 mg PO [facility] Senna (Sennosides 1 Tablet) 2 tab PO DAILYP PRN PRN Reason: Constipation Sodium Chloride (0.9 % Sodium Chloride 10 Ml Syringe) 10 ml IV Q8 [facility] Last Admin: 08/02/21 04:02 Dose: 10 ml Documented by: Tamsulosin HCl (Tamsulosin 0.4 Mg Capsule) 0.4 mg PO QDAY [facility] A/P Narrative A/P Narrative: A: *PNA b/l groundglass, suspect Atypical Bacterial vs Viral: -flu/covid/RVP/strep neg -elevated PCT -ESR quite high, CRP elevated *Acute hypoxic respiratory failure: -on 2-3L NC *Hyperlipidemia: *GERD: *Ulcerative colitis: no current symptoms P: -Rocephin/azithromycin -pending myco -vasculitis/ZARIA labs pending -O2 supp, wean as able -cont home ppi -f/u with Pulmonology outpt -ppx: lovenox Time Spent With Patient Time: Total time spent is greater than 50% in coordination of care (as documented) at patient's floor/unit and/or counseling patient: Total time spent with greater than 50% in coordination of care (as documented) at patient's floor/unit and/or counseling patient:: 35 - 50 minutes QUALITY VTE Deep Vein Thrombosis/Pulmonary Embolism Present on Admission: No
[2021-08-02] MEDS: TAMSULOSIN 0.4 MG CAPSULE PO SCH ×3 (08:19→21:05)
[2021-08-02] MEDS: FAMOTIDINE 20 MG TABLET PO SCH ×3 (08:20→21:05)
[2021-08-02] MEDS: EZETIMIBE 10 MG TABLET PO SCH ×3 (08:20→21:04)
[2021-08-02] MEDS: DOCUSATE SODIUM 100 MG CAPSULE PO SCH ×3 (08:20→20:10)
[2021-08-02] MEDS: DULoxetine 30 MG CAPSULE PO SCH ×3 (08:20→21:05)
[2021-08-02] MEDS: predniSONE 20 MG TABLET PO SCH (08:20)
[2021-08-02] MEDS: ENOXAPARIN 40 MG/0.4 ML SYRINGE SQ SCH (08:20)
[2021-08-02] MEDS: Budesonide-Glycopyr-Formoterol [Breztri] Inhaler INH SCH ×2 (08:41→21:06)
[2021-08-02] MEDS: IPRATROPIUM/ALBUTEROL 3 ML AMPUL.NEB NEB SCH ×2 (09:21→20:50)
[2021-08-02] MEDS: cefTRIAXone 2 GM in DEXTROSE 5% IN WATER 50 ML IV SCH (09:33)
[2021-08-02] MEDS: ACETAMINOPHEN 325 MG TABLET PO PRN (09:41)
[2021-08-02] MEDS: AZITHROMYCIN 500 MG in DEXTROSE 5% IN WATER 250 ML IV SCH (10:57)
[2021-08-02] MEDS ORDERED: diphenhydrAMINE 25 MG CAPSULE PO PRN (22:31)
[2021-08-02] MEDS ORDERED: diphenhydrAMINE 25 MG CAPSULE PO ONE (22:31)
[2021-08-02] MEDS ORDERED: diphenhydrAMINE 25 MG CAPSULE ONE (23:03)
[2021-08-03] MEDS: 0.9 % SODIUM CHLORIDE 10 ML SYRINGE IV SCH ×3 (05:04→20:47)
[2021-08-03 06:58] LABS: ALT/SGPT 10 U/L (<40); AST/SGOT 13 U/L (<40); Albumin 3.5 gm/dL (3.2-5.2); Albumin/Globulin Ratio 0.8 (1.0-2.3); Alkaline Phosphatase 46 U/L (39-117); Bilirubin,Direct < 0.2 mg/dL (0-0.3); Bilirubin,Total 0.3 mg/dL (0.1-1.0); Blood Urea Nitrogen 12 mg/dL (8-23); Calcium 9.5 mg/dL (8.6-10.4); Carbon Dioxide 29 mmol/L (22-30); Chloride 100 mmol/L (96-108); Globulin 4.3 gm/dL (2.2-3.7); Glomerular Filtration Rate 84; Glucose 103 mg/dL (70-105); Lactate Dehydrogenase 129 U/L (135-225); Phosphorous 3.3 mg/dL (2.5-4.5); Triglycerides 81 mg/dL (<150)
--- NOTE | 2021-08-03 07:48 | Internal Med Progress Note ---
SUBJECTIVE Subjective Patient information: Note initiated : 08/03/21 at 7:45 am Service Date, if different from initiated Date: [] Patient: Norman Lofton a 71 y/o M admitted on 08/01/21 for Short of breath. Chief Complaint: [] Interval history: History of present illness: Mr. Lofton is a 71 year old M Presents to the ED with shortness of breath and dry cough. He says he came in today finally because his said last night he was breathing really shallow and she did not like the way he was breathing. Patient states in April started having shortness of breath and coughing issues. He was also having a lot of nasal congestion and drainage and attributed it to allergies. But because of shortness of breath he went and saw his primary care Dr. Nam. Is placed on a course of antibiotics and also trialed on several different inhalers. Echocardiogram was done as well which was unremarkable. He eventually started improving and was recently in [place] visiting his in- laws and he felt better in [place], but while there his father did have a respiratory illness with a fever. When he got back from [place] he did develop the fever for day and then started developing worsening of his symptoms again, cough and shortness of breath. Patient denies a COVID or COVID exposure. He has had the COVID-vaccine and the booster. Denies pyrosis or other acid reflux symptoms. No exposure to farm/farm animals. In the ED he was evaluated found to be 86% on room air. Rapid flu and COVID test are negative, anther COVID test pending. She denies chest pain. But had the fevers for the 1 day and has some occasional chills. Recommend ED review he will the elevated dimer and thus a CT a of the chest was done. It was negative for PE but showed moderate patchy groundglass infiltrates bilateral upper lobes and left lower lobes and some small in the periphery of the posterior bilateral lobes. 08/02 Patient has dry cough. Shortness of breath present and not much better than yesterday. Viral work-up negative thus far. Mycoplasma pending. Vasculitis work-up pending. Monitoring inflammatory markers. 08/03 Working on titrating down oxygen. He is on 1 L of oxygen at rest. His cough is gradually improving. Shortness of breath waxing waning but mildly improved. Awaiting mycoplasma results and vasculitis studies. Inflammatory markers seem to be responding to therapy. Review of Systems: denies headache/fever/chills/nausea/vomiting/chest or abdominal pain/diarrhea. Otherwise see above. Constitutional Vitals: Vital Signs Temp Pulse Resp BP Pulse Ox 97.8 F 71 18 114/71 91 08/03/21 06:45 08/03/21 06:45 08/03/21 06:45 08/03/21 06:45 08/03/21 06:45 Period Temp Pulse Resp BP Sys/Yoon Pulse Ox Last 24 Hr 97.5 F-99.7 F 71-86 16-18 114-131/69-88 91-96 Intake and Output 08/02/21 08/03/21 08/03/21 21:59 05:59 13:59 Intake Total 1150 500 Output Total 2125 1300 Balance -975 -800 Weight 84.141 kg Intake & Output: Intake & Output 08/02/21 08/03/21 08/03/21 21:59 05:59 13:59 Intake Total 1150 500 Output Total 2125 1300 Balance -975 -800 Weight 84.141 kg Intake: Oral 1150 500 Output: Void Amount 2125 1300 # of times incontinent of urine 0 0 Other: Meal Dinner Percent of Meal Consumed 100% Feeding Ability Independent Urine Appearance Clear Clear Urine Color Straw Straw Urine Odor Normal Normal # Voids 0 0 # Bowel Movements 0 0 # of times incontinent of 0 0 Bowels Exam: General: Alert, Awake, No acute Distress Eyes/N/T: EOMI, Head/Neck: neck supple, CV: RRR, No murmurs, Pulm: mild bibasilar rhonchi/rales, no wheezing Abd: soft, nontender, +BS x4 Ext: no clubbing/cyanosis/edema Neuro: Alert, no focal deficits, moves all extremities, Skin: warm/dry OBJ DATA Labs CBC & Chem 7: 08/02/21 05:16 08/03/21 05:08 Labs: Abnormal Lab Results 08/03/21 08/03/21 08/03/21 05:08 05:08 05:08 RBC Hgb Hct Lymph # (Auto) Lymphocytes % ESR D-Dimer Anion Gap Glucose Lactate Dehydrogenase 129 L C-Reactive Protein 1.70 H Globulin 4.3 H Albumin/Globulin Ratio 0.8 L Procalcitonin 0.16 H Rheumatoid Factor POC Troponin I 08/03/21 08/02/21 08/02/21 05:08 08:00 05:16 RBC Hgb Hct Lymph # (Auto) Lymphocytes % ESR 57 H D-Dimer Anion Gap Glucose Lactate Dehydrogenase C-Reactive Protein Globulin Albumin/Globulin Ratio Procalcitonin 0.26 H Rheumatoid Factor 60 H POC Troponin I 08/02/21 08/02/21 08/02/21 05:16 05:16 05:16 RBC 4.29 L Hgb 12.4 L Hct 38.4 L Lymph # (Auto) 1.39 L Lymphocytes % ESR D-Dimer Anion Gap Glucose 114 H Lactate Dehydrogenase 134 L C-Reactive Protein 3.80 H Globulin 4.5 H Albumin/Globulin Ratio 0.7 L Procalcitonin Rheumatoid Factor POC Troponin I 08/01/21 08/01/21 08/01/21 12:22 12:16 12:16 RBC Hgb Hct Lymph # (Auto) Lymphocytes % 14 L ESR D-Dimer Anion Gap Glucose Lactate Dehydrogenase C-Reactive Protein Globulin Albumin/Globulin Ratio Procalcitonin 0.39 H Rheumatoid Factor POC Troponin I 0 L 08/01/21 08/01/21 08/01/21 12:16 12:16 12:16 RBC Hgb Hct Lymph # (Auto) Lymphocytes % ESR 110 H D-Dimer 4.46 H Anion Gap Glucose Lactate Dehydrogenase C-Reactive Protein 5.60 H Globulin Albumin/Globulin Ratio Procalcitonin Rheumatoid Factor POC Troponin I 08/01/21 08/01/21 12:16 12:16 RBC 4.20 L Hgb 12.3 L Hct 37.1 L Lymph # (Auto) 1.29 L Lymphocytes % ESR D-Dimer Anion Gap 7.0 L Glucose 109 H Lactate Dehydrogenase C-Reactive Protein Globulin 4.4 H Albumin/Globulin Ratio 0.7 L Procalcitonin Rheumatoid Factor POC Troponin I Meds: Medications Acetaminophen (Acetaminophen 325 Mg Tablet) 650 mg PO Q4HP PRN; Protocol PRN Reason: Per Pain Protocol Last Admin: 08/02/21 09:41 Dose: 650 mg Documented by: Albuterol/Ipratropium (Ipratropium/Albuterol 3 Ml Ampul.Neb) 3 ml NEB Q4HP PRN PRN Reason: Shortness Of Breath Albuterol/Ipratropium (Ipratropium/Albuterol 3 Ml Ampul.Neb) 3 ml NEB BID [facility] Last Admin: 08/02/21 20:50 Dose: 3 ml Documented by: Celecoxib (Celecoxib 200 Mg Capsule) 200 mg PO QDAY PRN PRN Reason: pain Clobetasol Propionate (Clobetasol Propionate 1 Dose Tube) 1 dose TOPICAL BIDP PRN PRN Reason: Skin Irritation Diphenhydramine HCl (Diphenhydramine 25 Mg Capsule) 25 mg PO HSP PRN PRN Reason: Insomnia Docusate Sodium (Docusate Sodium 100 Mg Capsule) 100 mg PO BID [facility] Last Admin: 08/02/21 20:10 Dose: Not Given Documented by: Duloxetine HCl (Duloxetine 30 Mg Capsule) 120 mg PO [facility] Last Admin: 08/02/21 21:05 Dose: 120 mg Documented by: Ezetimibe (Ezetimibe 10 Mg Tablet) 10 mg PO HS [facility] Last Admin: 08/02/21 21:04 Dose: 10 mg Documented by: Enoxaparin Sodium (Enoxaparin 40 Mg/0.4 Ml Syringe) 40 mg SQ DAILY [facility] Last Admin: 08/02/21 08:20 Dose: 40 mg Documented by: Famotidine (Famotidine 20 Mg Tablet) 20 mg PO BID [facility] Last Admin: 08/02/21 21:05 Dose: 20 mg Documented by: Potassium Chloride 40 meq/ (Dextrose) 520 mls @ 130 mls/hr IV UD PRN PRN Reason: Potassium < 3 Magnesium Sulfate (Magnesium Sulfate) 2 gm in 50 mls @ 50 mls/hr IV UD PRN PRN Reason: Magnesium </= 1.6 Ceftriaxone Sodium 2 gm/ (Dextrose) 50 mls @ 100 mls/hr IV DAILY [facility]; Protocol Last Infusion: 08/02/21 10:16 Dose: Infused Documented by: Azithromycin 500 mg/ Dextrose 250 mls @ 250 mls/hr IV DAILY@1100 [facility]; Protocol Stop: 08/03/21 11:59 Last Infusion: 08/02/21 12:03 Dose: Infused Documented by: Melatonin (Melatonin 3 Mg Tablet) 3 mg PO QHS [facility] Mupirocin (Mupirocin Oint 2% 22gm) 1 dose TOPICAL BIDP PRN PRN Reason: Skin Irritation Ondansetron HCl (Ondansetron 4 Mg/2 Ml Vial) 4 mg IV Q4HP PRN PRN Reason: Nausea And Vomiting Rizatriptan 5 Mg Tablet, Disintegrating 1 dose PO DAILYP PRN PRN Reason: Migraine Headache Balsalazide 750 Mg (Capsule) 3 dose PO TID [facility] Last Admin: 08/02/21 21:05 Dose: 3 dose Documented by: Budesonide-Glycopyr- Formoterol [Breztri] Inhaler 1 dose INH BID [facility] Last Admin: 08/02/21 21:06 Dose: Not Given Documented by: Polyethylene Glycol (Polyethylene Glycol 3350 17 Gm Packet) 17 gm PO DAILYP PRN PRN Reason: Constipation Potassium Chloride (Potassium Chloride 20 Meq Tablet) 40 meq PO UD PRN PRN Reason: Potssium is 3-3.5 Potassium Chloride (Potassium Chloride 20 Meq Tablet) 40 meq PO UD PRN PRN Reason: Potassium < 3 Prednisone (Prednisone 20 Mg Tablet) [facility] Last Admin: 08/02/21 08:20 Dose: 40 mg Documented by: Senna (Sennosides 1 Tablet) 2 tab PO DAILYP PRN PRN Reason: Constipation Sodium Chloride (0.9 % Sodium Chloride 10 Ml Syringe) 10 ml IV Q8 [facility] Last Admin: 08/03/21 05:04 Dose: 10 ml Documented by: Tamsulosin HCl (Tamsulosin 0.4 Mg Capsule) 0.4 mg PO HS [facility] Last Admin: 08/02/21 21:05 Dose: 0.4 mg Documented by: A/P Narrative A/P Narrative: A: *PNA b/l groundglass, suspect Atypical Bacterial vs Viral: -flu/covid/RVP/strep neg -elevated PCT -ESR quite high but responding, CRP elevated -RF elevated, but could be related pulmonary fibrosis or to ?pulm infection *Acute hypoxic respiratory failure: -on 1-2L NC *Hyperlipidemia: *GERD: *Ulcerative colitis: no current symptoms P: -Rocephin/azithromycin -pending myco -vasculitis/ZARIA labs pending -prednisone x5 days -O2 supp, wean as able -cont home ppi -f/u with Pulmonology outpt -ppx: lovenox Time Spent With Patient Time: Total time spent is greater than 50% in coordination of care (as documented) at patient's floor/unit and/or counseling patient: Total time spent with greater than 50% in coordination of care (as documented) at patient's floor/unit and/or counseling patient:: 25 - 35 minutes QUALITY VTE Deep Vein Thrombosis/Pulmonary Embolism Present on Admission: No
[2021-08-03] MEDS: predniSONE 20 MG TABLET PO SCH (08:21)
[2021-08-03] MEDS: ENOXAPARIN 40 MG/0.4 ML SYRINGE SQ SCH (08:21)
[2021-08-03] MEDS: FAMOTIDINE 20 MG TABLET PO SCH ×2 (08:21→20:46)
[2021-08-03] MEDS: DOCUSATE SODIUM 100 MG CAPSULE PO SCH ×4 (08:21→20:50)
[2021-08-03] MEDS: Budesonide-Glycopyr-Formoterol [Breztri] Inhaler INH SCH ×3 (08:22→20:53)
[2021-08-03] MEDS: cefTRIAXone 2 GM in DEXTROSE 5% IN WATER 50 ML IV SCH (08:26)
[2021-08-03] MEDS: ACETAMINOPHEN 325 MG TABLET PO PRN (08:42)
[2021-08-03] MEDS: IPRATROPIUM/ALBUTEROL 3 ML AMPUL.NEB NEB SCH ×2 (09:30→21:14)
[2021-08-03] MEDS: AZITHROMYCIN 500 MG in DEXTROSE 5% IN WATER 250 ML IV SCH (11:45)
[2021-08-03] MEDS: TAMSULOSIN 0.4 MG CAPSULE PO SCH (20:45)
[2021-08-03] MEDS: DULoxetine 30 MG CAPSULE PO SCH (20:45)
[2021-08-03] MEDS: EZETIMIBE 10 MG TABLET PO SCH (20:45)
[2021-08-03] MEDS ORDERED: MELATONIN 3 MG TABLET PO SCH (21:00)
[2021-08-04] MEDS: ACETAMINOPHEN 325 MG TABLET PO PRN ×2 (01:30→07:25)
[2021-08-04] MEDS: 0.9 % SODIUM CHLORIDE 10 ML SYRINGE IV SCH (05:07)
--- NOTE | 2021-08-04 07:03 | EKG ---
[facility] Test Date: 2021-08-01 Pat Name: Norman Lofton Department: ED Room: Gender: Male Colleter: : 1950 Requested By: Олег Mcgregor Order Number: [id number] Reading MD: Romero Alvarado Measurements Intervals [place] Rate: 73 P: 71 MI: 192 QRS: 68 QRSD: 91 T: 47 QT: 378 QTc: 417 Interpretive Statements Sinus rhythm Electronically Signed On 08-04-2021 7:03:07 PDT by Romero Alvarado /[email or web address]/[id number]/[id number]
[2021-08-04] MEDS: DOCUSATE SODIUM 100 MG CAPSULE PO SCH (07:23)
[2021-08-04] MEDS: cefTRIAXone 2 GM in DEXTROSE 5% IN WATER 50 ML IV SCH (08:19)
[2021-08-04] MEDS: predniSONE 20 MG TABLET PO SCH (08:19)
[2021-08-04] MEDS: ENOXAPARIN 40 MG/0.4 ML SYRINGE SQ SCH (08:20)
[2021-08-04] MEDS: FAMOTIDINE 20 MG TABLET PO SCH (08:20)
[2021-08-04] MEDS: Budesonide-Glycopyr-Formoterol [Breztri] Inhaler INH SCH (08:21)
[2021-08-04] MEDS: IPRATROPIUM/ALBUTEROL 3 ML AMPUL.NEB NEB SCH (08:38)
--- NOTE | 2021-08-04 10:11 | Discharge Summary ---
Discharge Provider Provider IMPORTANT FOLLOW-UP INFORMATION FOR PCP: Patient information: Note initiated : 08/04/21 at 10:10 am Service Date, if different from initiated Date: [] Patient: Norman Lofton 71 y/o M admitted on 08/01/21 for Short of breath. Chief Complaint: [] Date of admission: 08/01/21 16:15 Discharge date: 08/04/21 Primary care physician: Satinder Nam MD Consults: 08/01/21 Consult to Physician [CONS] Stat Comment: Consulting Provider: Davion Qureshi Reason For Exam: Physician to Consult Discharge Meds Discharge Medications Home Medications celecoxib 200 mg capsule 200 mg PO QDAY 12/24/20 [History Confirmed 08/01/21 Last Taken 07/31/21 21:00] balsalazide 750 mg capsule 2,250 mg PO TID 01/28/21 [History Confirmed 08/01/21 Last Taken 08/01/21 09:30] tamsulosin 0.4 mg capsule 0.4 mg PO QDAY #90 cap 05/13/21 [Rx Confirmed 08/01/21 Last Taken 07/31/21 21:00] ezetimibe 10 mg tablet (Zetia) 10 mg PO QDAY #90 tab 05/14/21 [Rx Confirmed 08/01/21 Last Taken Unknown] rizatriptan 5 mg disintegrating tablet See Rx Instructions PO .COMPLEX #10 tab 06/10/21 [Rx Confirmed 08/01/21 Last Taken 07/30/21 21:00] duloxetine 60 mg capsule,delayed release 120 mg PO QDAY #180 cap 06/24/21 [Rx Confirmed 08/01/21 Last Taken 07/31/21 21:00] albuterol sulfate 90 mcg/actuation aerosol inhaler (Ventolin HFA) 2 puff INHALATION Q4-6H PRN 08/01/21 [History Confirmed 08/01/21 Last Taken 07/31/21 21:00] clobetasol 0.05 % topical cream 1 applic TOPICAL BID PRN 08/01/21 [History Confirmed 08/01/21 Last Taken Unknown] mupirocin 2 % topical ointment 1 applic TOPICAL BID PRN 08/01/21 [History Confirmed 08/01/21 Last Taken Unknown] azithromycin 500 mg tablet 500 mg PO QDAY 3 Days #3 tab 08/04/21 [Rx Last Taken Unknown] cefdinir 300 mg capsule 300 mg PO BID #14 cap 08/04/21 [Rx Last Taken Unknown] celecoxib 200 mg capsule 200 mg PO QDAY PRN #30 cap 08/04/21 [Rx Last Taken Unknown] clobetasol 0.05 % topical cream 1 applic TOPICAL BIDP PRN #15 g 08/04/21 [Rx Last Taken Unknown] duloxetine 30 mg capsule,delayed release 120 mg PO HS #30 cap 08/04/21 [Rx Last Taken Unknown] ezetimibe 10 mg tablet 10 mg PO HS #30 tab 08/04/21 [Rx Last Taken Unknown] mupirocin 2 % topical ointment 1 applic TOPICAL BIDP PRN #15 g 08/04/21 [Rx Last Taken Unknown] prednisone 20 mg tablet 40 mg PO QAMCC #5 tab 08/04/21 [Rx Last Taken Unknown] tamsulosin 0.4 mg capsule 0.4 mg PO HS #30 cap 08/04/21 [Rx Last Taken Unknown] COURSE Hospital Course Hospital course: Mr. Lofton is a 71 year old M Presents to the ED with shortness of breath and dry cough. He says he came in today finally because his said last night he was breathing really shallow and she did not like the way he was breathing. Patient states in April started having shortness of breath and coughing issues. He was also having a lot of nasal congestion and drainage and attributed it to allergies. But because of shortness of breath he went and saw his primary care Dr. Nam. Is placed on a course of antibiotics and also trialed on several different inhalers. Echocardiogram was done as well which was unremarkable. He eventually started improving and was recently in [place] visiting his in- laws and he felt better in [place], but while there his father did have a respiratory illness with a fever. When he got back from [place] he did develop the fever for day and then started developing worsening of his symptoms again, cough and shortness of breath. Patient denies a COVID or COVID exposure. He has had the COVID-vaccine and the booster. Denies pyrosis or other acid reflux symptoms. No exposure to farm/farm animals. In the ED he was evaluated found to be 86% on room air. Rapid flu and COVID test are negative, anther COVID test pending. She denies chest pain. But had the fevers for the 1 day and has some occasional chills. Recommend ED review he will the elevated dimer and thus a CT a of the chest was done. It was negative for PE but showed moderate patchy groundglass infiltrates bilateral upper lobes and left lower lobes and some small in the periphery of the posterior bilateral lobes. 08/02 Patient has dry cough. Shortness of breath present and not much better than yesterday. Viral work-up negative thus far. Mycoplasma pending. Vasculitis work-up pending. Monitoring inflammatory markers. 08/03 Working on titrating down oxygen. He is on 1 L of oxygen at rest. His cough is gradually improving. Shortness of breath waxing waning but mildly improved. Awaiting mycoplasma results and vasculitis studies. Inflammatory markers seem to be responding to therapy. 08/04 His oxygenation improved significantly-off of oxygen ambulating in the hallway without any shortness of breath Patient wanted to be discharged home 's mycoplasma testing pending vasculitis testing pending Patient does have an appointment with the pulmonology Educated the patient about bilateral groundglass opacity and potential atypical pneumonia/viral pneumonia Patient will be discharged on cefdinir and azithromycin, prednisone for a week and follow-up with the pulmonology Discharge diagnosis: Acute hypoxic respiratory failure, Pneumonia Time Spent with Patient Time attestation: Total time spent providing and/or coordinating discharge services: Time spent: Greater than 30 minutes EXAM Constitutional Vitals: Temp Pulse Resp BP Pulse Ox 98.0 F 82 14 130/65 92 08/04/21 08:10 08/04/21 08:39 08/04/21 08:39 08/04/21 07:00 08/04/21 08:39 General appearance: average body habitus, cooperative and no acute distress Head Head exam: Present atraumatic and normal inspection Eye Eye exam: Present EOMI ENT ENT exam: Present mucous membranes moist Respiratory Respiratory exam: Present rales Cardiovascular Cardiovascular exam: Present normal rate and rhythm GI/Abdominal GI/Abdominal exam: Present normal bowel sounds and soft Discharge Plan Patient/Caregiver Discharge Instructions Activity: increase activity as tolerated Diet: Regular Diet Instructions: Viral Pneumonia (IP), Pneumonia (IP) Prescriptions: New prednisone 20 mg Tablet 40 mg PO [facility] Qty: 5 0RF cefdinir 300 mg capsule 300 mg PO BID Qty: 14 0RF azithromycin 500 mg tablet 500 mg PO QDAY 3 Days Qty: 3 0RF celecoxib 200 mg Capsule 200 mg PO QDAY PRN (Reason: pain) Qty: 30 0RF clobetasol 0.05 % Cream 1 applic topical BIDP PRN (Reason: Skin Irritation) Qty: 15 0RF tamsulosin 0.4 mg Capsule 0.4 mg PO HS Qty: 30 0RF mupirocin 2 % Ointment 1 applic topical BIDP PRN (Reason: Skin Irritation) Qty: 15 0RF ezetimibe 10 mg Tablet 10 mg PO HS Qty: 30 0RF duloxetine 30 mg Capsule,Delayed Release(Dr/Ec) 120 mg PO HS Qty: 30 0RF Continued tamsulosin 0.4 mg capsule 0.4 mg PO QDAY Qty: 90 0RF rizatriptan 5 mg tablet,disintegrating See Rx Instructions PO .COMPLEX Qty: 10 0RF Rx Instructions: take 1 tablet at onset of headache; if no relief, may repeat 1 tablet after at least 2 hrs PO duloxetine 60 mg capsule,delayed release(DR/EC) 120 mg PO QDAY Qty: 180 0RF celecoxib 200 mg capsule 200 mg PO QDAY 0RF balsalazide 750 mg capsule 2,250 mg PO TID 0RF ezetimibe [Zetia] 10 mg tablet 10 mg PO QDAY Qty: 90 2RF Breztri Aerosphere 160-9-4.8 mcg/actuation HFA aerosol inhaler 2 puff inhalation BID 0RF Hold Instructions: Doctor's Order albuterol sulfate [Ventolin HFA] 90 mcg/actuation HFA aerosol inhaler 2 puff inhalation Q4-6H PRN (Reason: shortness of breath or wheezing) 0RF clobetasol 0.05 % Cream 1 applic TOPICAL BID PRN (Reason: Skin Irritation) 0RF mupirocin 2 % ointment 1 applic topical BID PRN (Reason: Skin Irritation) 0RF Follow Up Plan Follow up with: Satinder Nam MD [Primary Care Provider] - Patient Disposition: Home, Self-Care Care Plan Goals: see lung specialist in 2 weeks Prognosis: Fair Overall status at discharge: patient is progressing back to baseline Discharge Orders: Discharge Order (Routine); Ordered 08/04/21 Ordered By: Rejeesh Ramírez QUALITY VTE Deep Vein Thrombosis/Pulmonary Embolism Present on Admission: No
[2021-08-06 18:37] LABS: M. Pneumoniae IGG < or = 0.90; M. Pneumoniae IGM 131 U/mL
[2021-08-09 12:37] LABS: Myeloperoxidase Antibody <1.0 AI (<1.0)
== END 2021-08-04 13:30 | disposition home or self-care (01) | DRG 193 ==
LOC: ED 11:25 → MEDSUR 16:15
PROVIDERS: ADMIT Internal Medicine; ATTEND Internal Medicine